=== PATIENT | female | born 1995 | race Caucasian/White ===

== ENCOUNTER 2017-02-24 05:22 | Emergency (ER) | payer MEDICAID ==
[2017-02-24 05:32] VITALS: BP 105/70
[2017-02-24] MEDS ORDERED: Diphtheria,Pertussis(Acell),Tetanus Vaccine 0.5 ML SDV inactive IM ONE (05:43)
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
--- NOTE | 2017-02-26 08:11 | CR ---
Chest and left ribs: Frontal view of the chest was obtained as well as 2 views of the left ribs. Comparison: No previous study. Heart size and mediastinum are normal. Lungs are clear. No discrete fracture or other left sided rib abnormality is seen. Impression: 1. No discrete left-sided rib abnormality. 2. Nothing acute seen on accompanying chest x-ray. Diagnostic code #1
--- NOTE | 2017-02-26 08:11 | CR ---
Facial bones: Four views of the facial bones were obtained. Comparison: No previous study. Visualized sinuses are clear. No discrete facial bone abnormality is appreciated. Impression: 1. No abnormality is identified on four-view facial bone study. Diagnostic code #1
== END 2017-02-24 07:45 | disposition home or self-care (01) ==
LOC: JD.ED 05:22
DX: S01.511A Laceration without foreign body of lip, initial encounter (principal); S51.852A Open bite of left forearm, initial encounter; S51.851A Open bite of right forearm, initial encounter; S40.012A Contusion of left shoulder, initial encounter; S40.022A Contusion of left upper arm, initial encounter; S20.212A Contusion of left front wall of thorax, initial encounter; K08.89 Other specified disorders of teeth and supporting structures; Y04.1XXA Assault by human bite, initial encounter
CPT/HCPCS: 70140; 70140-26; 71101-26-LT; 71101-LT; 90471; 90715; 99283; 99285-25

== ENCOUNTER 2017-02-24 10:01 | Emergency (ER) | payer MEDICAID ==
[2017-02-24] MEDS ORDERED: HYDROmorphone 1 MG/ML Syringe IVPUSH ONE (10:52)
[2017-02-24] MEDS ORDERED: Ondansetron 4 MG/2 ML SDV IVPUSH ONE (10:52)
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
[2017-02-24] MEDS ORDERED: Sodium Chloride 0.9% 1,000 ML IV SCH (11:00)
--- NOTE | 2017-02-24 11:43 | CT ---
Head CT Technique: Multiple axial sections through the brain were obtained. Intravenous contrast was not utilized. Comparison: No previous intracranial imaging. Findings: Ventricles along with basal cisterns and sulci over the convexities appear within normal limits for the patient's age. No abnormal parenchymal densities are seen. No evidence of intracranial hemorrhage. No midline shift or mass effect is seen. Bone window settings were reviewed which shows a very minimal hematoma within the left frontal scalp. No acute calvarial abnormality is seen. Impression: 1. Minimal scalp hematoma within the left frontal region. 2. No acute intracranial abnormality is identified. Diagnostic code #2
[2017-02-24 14:29] VITALS: BP 112/66
== END 2017-02-24 13:00 | disposition home or self-care (01) ==
LOC: JD.ED 10:01
DX: T74.11XA Adult physical abuse, confirmed, initial encounter (principal); S00.83XA Contusion of other part of head, initial encounter; F41.9 Anxiety disorder, unspecified; Y04.2XXA Assault by strike against or bumped into by another person, initial encounter; Y07.411 Sister, perpetrator of maltreatment and neglect
CPT/HCPCS: 70450; 96361; 96374; 96375; 99284; J1170; J2405; J7040

== ENCOUNTER 2017-02-25 09:46 | Emergency (ER) | payer MEDICAID ==
[2017-02-25 10:01] VITALS: BP 110/68
[2017-02-25] MEDS ORDERED: Ibuprofen 400 MG Tab PO ONE (10:51)
[2017-02-25] MEDS ORDERED: Amoxicillin/Clavulanate K 875-125 MG Tab PO ONE (10:51)
[2017-02-25] MEDS ORDERED: Acetaminophen 325 MG Tab PO ONE (10:51)
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
== END 2017-02-25 11:15 | disposition home or self-care (01) ==
LOC: JD.ED 09:46
DX: S01.511A Laceration without foreign body of lip, initial encounter (principal); Y04.1XXA Assault by human bite, initial encounter
CPT/HCPCS: 99283; A9270